=== PATIENT | male | born 1965 | race Caucasian/White ===

== ENCOUNTER 2018-06-03 11:24 | Emergency (ER) | END 2018-06-03 13:44 | disposition home or self-care (01) ==

== ENCOUNTER 2018-07-08 11:54 | Emergency (ER) | payer MEDICARE ==
[~2018-07-08] VITALS: Ht 172.7 cm; Wt 78.8 kg
[~2018-07-08 11:54] MED LIST: HYDR-4011 PO; IBUP-1542 PO
[2018-07-08 11:57] VITALS: BP 119/67; PULSE 106; RESP 19; Ht 172.7 cm; Wt 78.8 kg
== END 2018-07-08 12:20 | disposition left against medical advice (07) ==
LOC: FTE 11:54
DX: Z53.21 Procedure and treatment not carried out due to patient leaving prior to being seen by health care provider (principal)

== ENCOUNTER → 2018-07-26 | Outpatient (CLI) | payer MEDICARE | END | disposition home or self-care (01) | LOC: RAD 11:39 | PROVIDERS: ATTEND Internal Medicine Endocrinology, Diabetes & Metabolism | DX: S44.92 Injury of unspecified nerve at shoulder and upper arm level, left arm (principal); X58.XXXD Exposure to other specified factors, subsequent encounter ==